=== PATIENT | male | born 1985 | race Caucasian/White ===

== ENCOUNTER 2017-03-04 22:19 | Emergency (ER) | payer MEDICAID ==
[2017-03-04] MEDS ORDERED: Ondansetron INJ* 2 MG/ML VIAL IV ONE (23:48)
[2017-03-05 00:27] VITALS: BP 123/67
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
== END 2017-03-05 00:30 | disposition home or self-care (01) ==
LOC: ED 22:19
DX: T40.1X1A Poisoning by heroin, accidental (unintentional), initial encounter (principal); R22.0 Localized swelling, mass and lump, head; Y92.002 Bathroom of unspecified non-institutional (private) residence as the place of occurrence of the external cause; Z88.0 Allergy status to penicillin
CPT/HCPCS: 96374; 99283; J2405